=== PATIENT | female | born 1980 | race Caucasian/White ===

== ENCOUNTER 2017-02-14 12:40 | Emergency (ER) | payer OTHER ==
[~2017-02-14] VITALS: Ht 162.6 cm; Wt 99.0 kg
[~2017-02-14 12:40] MED LIST: PREN1TAB49
[2017-02-14 12:53] VITALS: Ht 162.6 cm; Wt 99.0 kg
--- NOTE | 2017-02-14 14:13 | ERD ---
ER Documentation Chief Complaint Date/Time DATE: 02/14/17 TIME: 14:06 Chief Complaint rectal pain/swelling x 3 days HPI 37-year-old female who is approximately 36 weeks presents the emergency department for complaints of pain and swelling near her rectum. She states the pain is intermittent and currently rates it as a 5 out of 10 dull pain worse with defecation. Patient states she has not attempted to treat her symptoms as far she is safe to take during . Patient does note similar symptoms with her 2 prior pregnancies. She denies bloody stool, hematochezia, coffee-ground emesis, abdominal pain, nausea, vomiting, diarrhea, fever, chills, cramping or vaginal bleeding. ROS All systems reviewed and are negative except as per history of present illness. Medications Home Meds Active Scripts Acetaminophen* (Tylenol*) 325 Mg Tablet, 2 TAB PO Q6 Y for PAIN AND OR ELEVATED TEMP, #20 TAB Prov:VICENTA GOODE PA-C 02/14/17 Docusate Sodium* (Colace*) 100 Mg Capsule, 100 MG PO TID, #30 CAP Prov:VICENTA GOODE PA-C 02/14/17 Hydrocortisone Acetate (Anusol-Hc) 25 Mg Supp.rect, 1 SUPP [place] BID Y for HEMORROID PAIN/ITCHING, #20 SUPP.RECT Prov:VICENTA GOODE PA-C 02/14/17 Reported Medications Vits W-Ca,Fe,Fa(<1MG) () 1 Tab Tablet 02/08/11 Allergies Allergies: Coded Allergies: No Known Drug Allergies (Verified Allergy, Unknown, 02/14/17) Physical Exam Vitals Vital Signs Date Time Temp Pulse Resp B/P Pulse Ox O2 Delivery O2 Flow Rate FiO2 02/14/17 12:53 97.9 86 16 116/58 99 Physical Exam Const: Well-developed, well-nourished, no acute distress Neck: Full range of motion..~ No meningismus. Resp: Clear to auscultation bilaterally Cardio: Regular rate and rhythm, no murmurs Abd: Soft, non tender, non distended. Normal bowel sounds RECTAL: Two, 1 cm soft external hemorrhoids. 1 hardened possibly thrombosed external hemorrhoid. Moderate tenderness to palpation. No active bleeding. No evidence of other perianal cysts swelling or fluctuance. Back: No midline or flank tenderness Ext: No cyanosis, or edema Neur: Awake and alert Psych: Normal Mood and Affect Procedures/MDM This is an otherwise healthy 37-year-old female who is approximately 36 weeks who presents with complaints of rectal pain and swelling 3 days. Patient denies any bleeding, hematochezia, coffee-ground emesis, dizziness, fever, chills, abdominal pain, or fever. Patient notes similar symptoms with prior pregnancies. She states she was unaware of safe medications to take to improve her symptoms. Vital signs reviewed. Patient afebrile, non-tachycardic , normotensive and non-hypoxic upon arrival. Physical exam with evidence of multiple tender, nonbleeding external hemorrhoids. No evidence of other perianal swelling or fluctuance. History and physical consistent with hemorrhoid. At this time low suspicion for perianal or rectal abscess, urinary tract infection, labor, severe systemic illness or sepsis. Patient to begin conservative therapy with stool softener and Anusol suppository for symptomatic relief. Both medications have been shown to be safe during . Patient follow-up with primary care physician if symptoms do not improve. Resources provided for GI specialist if symptoms continue or worsen. Based on patient's history of present illness and physical examination the decision was made to discharge. There is no evidence of life threatening injuries or illnesses at this time. Patient reports feeling better and safe for discharge with outpatient follow up with PMD in 1-2 days. Patient given return precautions. Departure Diagnosis: Primary Impression: Hemorrhoid Hemorrhoid type: unspecified Qualified Code: K64.9 - Hemorrhoids, unspecified hemorrhoid type Additional Impression: Rectal pain VICENTA GOODE PA-C Feb 14, 2017 14:13
[2017-02-14] MEDS ORDERED: ACET325T33 PO (14:23)
[2017-02-14] MEDS ORDERED: HYDR25SU23 PR (14:23)
[2017-02-14] MEDS ORDERED: DOCU-144 PO (14:23)
== END 2017-02-14 14:59 | disposition home or self-care (01) ==
LOC: FTE 12:40
DX: K64.4 Residual hemorrhoidal skin tags (principal)
CPT/HCPCS: 99284

== ENCOUNTER 2017-03-07 15:21 | Inpatient (IN) | payer OTHER ==
[~2017-03-07] VITALS: Ht 167.6 cm; Wt 100.5 kg
[~2017-03-07 15:21] MED LIST changes: +ACET325T33 PO; +DOCU-144 PO; +HYDR25SU23 PR
--- NOTE | 2017-03-07 15:55 | RADRPT ---
PROCEDURE: US OB biophysical profile. CLINICAL INDICATION: decreased movements TECHNIQUE: Multiple sonographic images of the pelvis were obtained. The images were reviewed on a PACS workstation. COMPARISON: No prior studies are available for comparison. FINDINGS: There is a single viable intrauterine gestation. Cardiac activity is present with 150 beats per min bobby. There is a vertex presentation. The placenta is posterior fundal. There is no evidence for an abruption or placenta previa. There is a normal amount of amniotic fluid with an DEMETRIO = 16.2 cm. Biophysical profile: movement 2/2 tone 2/2. breathing 2/2 DEMETRIO 2/2 Total 02/27 RPTAT: AA . IMPRESSION: Normal biophysical profile. . .Marcio Darling MD, Date Time Electronically viewed and signed by .Marcio Darling MD, MD on 03/07/2017 15:55 .S/
--- NOTE | 2017-03-07 15:55 | RADRPT ---
PROCEDURE: US OB. CLINICAL INDICATION: Size and dates , large for dates TECHNIQUE: Multiple sonographic images of the pelvis and gravid uterus were obtained. The images were reviewed on a PACS workstation. COMPARISON: No prior studies are available for comparison. FINDINGS: There is a single viable intrauterine gestation. Cardiac activity is present with 148 beats per min [place]. There is a vertex presentation. The placenta is posterior fundal. There is no evidence for an abruption or placenta previa. There is a normal amount of amniotic fluid with an DEMETRIO = 16.2 cm. Measurements were made in order to determine age. The results are as follows: BPD =9.4 cm HC =33.5 cm AC =38.5 cm FL =7.4 cm Estimated gestational age of approximately 38 weeks and 1 day based on ultrasound measurements. Clinical age: 39 weeks and 2 days. The estimated date of delivery is 03/20/17, based on ultrasound measurements. The EFW = 4123 g, 92.4%, based on LMP age. RPTAT: AA IMPRESSION: Single viable intrauterine gestation of approximately 38 weeks and 1 day based on ultrasound measur ements. .Marcio Darling MD, MD Date Time Electronically viewed and signed by .Marcio Darling MD, MD on 03/07/2017 15:54 .S/
[2017-03-07 16:04] VITALS: BP 125/68; PULSE 75; RESP 18
[2017-03-07] MEDS ORDERED: LACTATED RINGER'S 1,000 ML IV SCH ×2 (19:49)
[2017-03-07] MEDS ORDERED: LACTATED RINGER'S 1,000 ML IV PRN (20:00)
[2017-03-07] MEDS ORDERED: BUTORPHANOL 2 MG INJ IV PRN (20:00)
[2017-03-07] MEDS ORDERED: OXYTOCIN 30 UNITS/LR 500 ML IV SCH ×2 (20:00)
[2017-03-07] MEDS ORDERED: MISOPROSTOL 200 MCG TAB PR PRN (20:00)
[2017-03-07] MEDS ORDERED: LIDOCAINE 1% (MPF) 30 ML INJ INJ PRN (20:00)
[2017-03-07] MEDS ORDERED: CARBOPROST 250 MCG INJ IM PRN (20:00)
[2017-03-07] MEDS ORDERED: METHYLERGONOVINE 0.2 MG INJ IM PRN (20:00)
[2017-03-07] MEDS ORDERED: IBUPROFEN 600 MG TAB PO PRN (20:00)
[2017-03-07] MEDS ORDERED: OXYTOCIN 30 UNITS/LR 500 ML IV PRN (20:00)
[2017-03-07] MEDS ORDERED: DINOPROSTONE 10 MG VAG SUPP VAG ONE (20:00)
[2017-03-07 21:40] LABS: BASOPHILS % 0.4 % (0.0-2.0); EOSINOPHILS % 0.5 % (0.0-7.0); HEMATOCRIT 36.3 % (37.0-47.0); HEMOGLOBIN 11.3 g/dl (12.0-16.0); LYMPHOCYTES # 1.4 10^3/ul (0.8-2.9); LYMPHOCYTES % 17.3 % (15.0-51.0); MEAN CORPUSCULAR HEMOGLOBIN 24.1 pg (29.0-33.0); MEAN CORPUSCULAR HGB CONC 31.1 g/dl (32.0-37.0); MEAN CORPUSCULAR VOLUME 77.6 fl (82.0-101.0); MEAN PLATELET VOLUME 11.4 fl (7.4-10.4); MONOCYTE # 0.8 10^3/ul (0.3-0.9); MONOCYTES % 9.3 % (0.0-11.0); NEUTROPHILS % 71.4 % (39.0-77.0); PLATELET COUNT 164 10^3/UL (140-415); RED BLOOD COUNT 4.68 10^6/ul (4.20-5.40); RED CELL DISTRIBUTION WIDTH 16.5 % (11.5-14.5); WHITE BLOOD COUNT 8.3 10^3/ul (4.8-10.8)
[2017-03-07 22:00] LABS: INR 0.93; PROTIME 12.5 Sec (12.2-14.2)
--- NOTE | 2017-03-07 22:37 | HP ---
Date/Time of Note Date/Time of Note DATE: 03/07/17 TIME: 22:31 OB - History Hx of Present Free Text/Dictation March 07, 2017 Chief Complaint: Suspected macrosomia : 4 Para: 3 Spontaneous : 0 Care: Good Care Other Concerns: 37-year-old with IUP at 39 weeks and 2 days with care at [facility] was sent from the clinic for induction of labor due to suspected macrosomia. She was noted to have 92% estimated weight in ultrasound. Had a history of macrosomia into prior . Had a baby above 9 pound and 3 oz baby in prior . cervix was closed and long and high. GBS negative History of chlamydia in current , s/p treatment , SERENA negative Past Family/Social History * Past Medical, Surgical, Family and Obstetric Histories reviewed from chart. Blood Type: O+ Rubella: immune RPR/VDRL: Negative GBS Status: Negative HBsAG: Negative OB Admission Exam Vital Signs Vital Signs Vital Signs Date Time Temp Pulse Resp B/P Pulse Ox O2 Delivery O2 Flow Rate FiO2 03/07/17 16:04 98.0 75 18 125/68 98 Room Air Physical Exam HEENT: WNL Heart: Rhythm Normal Lungs: Clear Abdomen: WNL Reflexes: Normal Cervical Dilatation: None Effacement: 0% Station: -3 Heart Rate: 130's Accelerations: Accelerations Present Decelerations: No Decelerations Varibility: Moderate Contractions on Admission: 6-10 Minutes Apart Intensity: Moderate Last 72 hours Lab Results CBC & BMP 03/07/17 21:00 OB Assessment/Plan Other Assessment: IUP at 39 weeks and 2 days Suspected macrosomia History of macrosomia in prior estimated weight in current 92 percentile GBS Cervix unfavorable Discussed with the patient regarding induction. cervical ripening with Cervidil discussed Risk and benefit of induction including risk for section discussed. Patient verbalized understanding We will admit to labor and delivery Start Cervidil for 12 hours Reevaluate the cervix after 12 hours Consider Pitocin if the cervix is favorable Anticipate Shoulder precaution at the time of delivery RADHA PÉREZ MD Mar 07, 2017 22:37
[2017-03-08] MEDS ORDERED: ONDANSETRON 4 MG INJ ONE (02:09)
[2017-03-08] MEDS ORDERED: CITRIC ACID/NA CITRATE 30 ML CUP ONE (02:09)
[2017-03-08] MEDS ORDERED: LACTATED RINGER'S 1,000 ML IV ONE (02:11)
[2017-03-08] MEDS ORDERED: FENTAnyl 2MCG/ML-ROPIV 0.2% 100 ML ONE (02:17)
[2017-03-08] MEDS ORDERED: NALBUPHINE HCL (10 MG/1 ML) INJ IV PRN (02:30)
[2017-03-08] MEDS ORDERED: FENTAnyl 2MCG/ML-ROPIV 0.2% 100 ML BAG EPI SCH (02:30)
[2017-03-08] MEDS ORDERED: NALOXONE (0.4 MG/ML) INJ IV PRN (02:30)
[2017-03-08] MEDS ORDERED: morphine 2 MG INJ IV PRN (02:30)
[2017-03-08] MEDS ORDERED: morphine 4 MG/ML VIAL IV PRN (02:30)
[2017-03-08] MEDS ORDERED: DIPHENHYDRAMINE 50 MG INJ IV PRN (02:30)
[2017-03-08] MEDS ORDERED: CITRIC ACID/NA CITRATE 30 ML CUP PO ONE (02:30)
[2017-03-08] MEDS ORDERED: ONDANSETRON 4 MG INJ IV ONE (02:30)
[2017-03-08] MEDS ORDERED: KETOROLAC 30 MG INJ IV PRN (02:30)
[2017-03-08] MEDS ORDERED: ONDANSETRON 4 MG INJ IV PRN ×2 (02:30→05:00)
[2017-03-08] MEDS ORDERED: TRIMETHOBENZAMIDE 100 MG/ML VIAL IM PRN (02:30)
[2017-03-08] MEDS ORDERED: LACTATED RINGER'S 1,000 ML IV* SCH (04:48)
--- NOTE | 2017-03-08 04:48 | LDN ---
Date/Time of Note Date/Time of Note DATE: 03/08/17 TIME: 04:46 Delivery Summary March 08, 2017 Weeks of Gestation 39 weeks and 2 days Placenta Delivered: Spontaneously Meconium: Particulate Episiotomy: No Perineal laceration: 2 Laceration repair: Second-degree perineal laceration that was repaired using 2-0 chromic Anesthesia type: Epidural Sponge & Needle done & correct: Yes All needle counts correct: Yes Any foreign bodies felt in the: No Problems: Infant Delivery Information Sex Infant Sex: male Apgars 1 Minute: 8 5 Minute: 9 Suctioning Nose & mouth suctioned at marcia: Yes Delee suction performed: Yes Umbilical Cord Umbilical cord with: 3 Vessels Cord presentations: no nuchal cord Cord Blood was obtained: Yes Mother & Baby Disposition Disposition placenta delivered intact. cord blood cord obtained. RADHA PÉREZ MD Mar 08, 2017 04:48
[2017-03-08] MEDS ORDERED: CARBOPROST 250 MCG INJ IM PRN (05:00)
[2017-03-08] MEDS ORDERED: WITCH HAZEL/GLYCERIN PAD PR PRN (05:00)
[2017-03-08] MEDS ORDERED: HYDROCODONE/APAP (5/325) TAB PO PRN (05:00)
[2017-03-08] MEDS ORDERED: DIPHENHYDRAMINE 25 MG CAP PO PRN (05:00)
[2017-03-08] MEDS ORDERED: LANOLIN 7 GM TUBE TOP PRN (05:00)
[2017-03-08] MEDS ORDERED: OXYTOCIN 30 UNITS/LR 500 ML IVPB ONE (05:00)
[2017-03-08] MEDS ORDERED: ZOLPIDEM 5 MG TAB PO PRN (05:00)
[2017-03-08] MEDS ORDERED: METHYLERGONOVINE 0.2 MG INJ IM PRN (05:00)
[2017-03-08] MEDS ORDERED: MISOPROSTOL 200 MCG TAB PR PRN (05:00)
[2017-03-08] MEDS ORDERED: OXYTOCIN 30 UNITS/LR 500 ML IV PRN (05:00)
[2017-03-08] MEDS ORDERED: ACETAMINOPHEN 325 MG TAB PO PRN (05:00)
[2017-03-08] MEDS: IBUPROFEN 600 MG TAB PO SCH ×4 (05:12→18:32)
[2017-03-08] MEDS: OXYTOCIN 30 UNITS/LR 500 ML IV SCH ×2 (05:15→10:32)
[2017-03-08 06:45] VITALS: BP 115/70; PULSE 66; RESP 18
[2017-03-08 08:14] VITALS: BP 100/59; PULSE 63; RESP 20
[2017-03-08] MEDS: SENNA/DOCUSATE NA (8.6MG/50MG) TAB PO SCH (10:31)
[2017-03-08 12:30] VITALS: BP 102/60; PULSE 90; RESP 18
[2017-03-08 16:18] VITALS: BP 118/57; PULSE 66; RESP 20
[2017-03-08 20:45] VITALS: BP 113/85; PULSE 87; RESP 19
[2017-03-09] MEDS: SENNA/DOCUSATE NA (8.6MG/50MG) TAB PO SCH ×2 (00:06→10:04)
[2017-03-09] MEDS: IBUPROFEN 600 MG TAB PO SCH ×4 (00:06→11:44)
[2017-03-09] MEDS: OXYTOCIN 30 UNITS/LR 500 ML IV SCH (00:55)
[2017-03-09 04:45] VITALS: BP 123/70; PULSE 77; RESP 19
[2017-03-09 08:30] VITALS: BP 112/59; PULSE 76; RESP 16
--- NOTE | 2017-03-09 09:58 | PD.PPDC ---
REGISTERED NURSE FLOAT POOL Discharge Instruction Condition Patient Condition: Good Diet Diet: Resume Regular Diet Activity/Restrictions Activity: Normal Activity May Shower Restrictions: No Exercising No Lifting No Driving No Sexual Activity Nothing in the Vagina No [place] No Tampons, douche Follow-up Follow-up with Physician: 2, Week/Weeks Provider Information: day 1 patient would like to be discharged today instructions given recommended continue taking vitamin, make an appointment with the clinic seen in 2 weeks Return to clinic for MANAGER FLOOR Instructions: Fever greater than 101 Chills Worsening abdominal pain Excessive Vaginal Bleeding More than 2 pads per hour Unable to tolerate diet OB Instructions: Breast Tenderness Depression Blurried Vision Headache GRACIELA CAMACHO MD Mar 09, 2017 09:58
--- NOTE | 2017-03-09 09:59 | PD.PPDC ---
BLEACH LIQUOR MAKER Discharge Instruction Condition Patient Condition: Good Diet Diet: Resume Regular Diet Activity/Restrictions Activity: Normal Activity May Shower Restrictions: No Exercising No Lifting No Driving No Sexual Activity Nothing in the Vagina No [place] No Tampons, douche Follow-up Follow-up with Physician: 2, Week/Weeks Return to clinic for BLANKET MAKER Instructions: Fever greater than 101 Chills Worsening abdominal pain Excessive Vaginal Bleeding More than 2 pads per hour Unable to tolerate diet OB Instructions: Breast Tenderness Depression Blurried Vision Headache GRACIELA CAMACHO MD Mar 09, 2017 09:59
--- NOTE | 2017-03-09 10:02 | DS ---
Date/Time of Note Date/Time of Note DATE: 03/09/17 TIME: 10:00 Discharge Summary Admission/Discharge Info Admit Date/Time Mar 07, 2017 at 19:30 Discharge Date/Time March 09, 2017 Discharge Diagnosis Post normal vaginal delivery day 1 Patient Condition: Good Procedures Normal vaginal delivery Hx of Present Illness Term admitted for delivery Hospital Course Satisfactory uneventful Home Meds Reported Medications Vits W-Ca,Fe,Fa(<1MG) () 1 Tab Tablet 02/08/11 Discontinued Scripts Acetaminophen* (Tylenol*) 325 Mg Tablet, 2 TAB PO Q6 Y for PAIN AND OR ELEVATED TEMP, #20 TAB Prov:VICENTA GOODE PA-C 02/14/17 Docusate Sodium* (Colace*) 100 Mg Capsule, 100 MG PO TID, #30 CAP Prov:VICENTA GOODE PA-C 02/14/17 Hydrocortisone Acetate (Anusol-Hc) 25 Mg Supp.rect, 1 SUPP [place] BID Y for HEMORROID PAIN/ITCHING, #20 SUPP.RECT Prov:VICENTA GOODE PA-C 02/14/17 Follow-up Plan instruction given recommended to make appointment in 2 weeks to be seen at the clinic Primary Care Provider Care Physician No Primary Time spent on discharge: < 30 minutes GRACIELA CAMACHO MD Mar 09, 2017 10:02
[2017-03-09 10:48] LABS: BASOPHILS % 0.2 % (0.0-2.0); EOSINOPHILS # 0.1 10^3/ul (0.0-0.5); EOSINOPHILS % 0.5 % (0.0-7.0); HEMATOCRIT 32.5 % (37.0-47.0); HEMOGLOBIN 9.8 g/dl (12.0-16.0); LYMPHOCYTES # 1.7 10^3/ul (0.8-2.9); LYMPHOCYTES % 13.6 % (15.0-51.0); MEAN CORPUSCULAR HEMOGLOBIN 23.8 pg (29.0-33.0); MEAN CORPUSCULAR HGB CONC 30.2 g/dl (32.0-37.0); MEAN CORPUSCULAR VOLUME 78.9 fl (82.0-101.0); MEAN PLATELET VOLUME 11.8 fl (7.4-10.4); MONOCYTE # 0.9 10^3/ul (0.3-0.9); MONOCYTES % 7.5 % (0.0-11.0); NEUTROPHILS % 77.5 % (39.0-77.0); PLATELET COUNT 185 10^3/UL (140-415); RED BLOOD COUNT 4.12 10^6/ul (4.20-5.40); RED CELL DISTRIBUTION WIDTH 16.9 % (11.5-14.5); WHITE BLOOD COUNT 12.2 10^3/ul (4.8-10.8)
[2017-03-10] MEDS ORDERED: VARICELLA VACCINE LIVE/PF 1,350 UNIT/0.5 ML ML SC* ONE (09:00)
[2017-03-10] MEDS ORDERED: DIPHTH/TET/ACEL PERTUSS (ADULT) 0.5 ML VIAL IM* ONE (09:00)
== END 2017-03-09 15:59 | disposition home or self-care (01) | DRG 775 ==
LOC: OBT 15:21 → L-D 15:22 → OBT 19:30 → L-D 19:30 → PP1 03-08 06:25
PROVIDERS: ADMIT Obstetrics & Gynecology; ATTEND Obstetrics & Gynecology
PROC: 10E0XZZ Delivery of Products of Conception, External Approach (ICD-10-PCS; principal; 2017-03-08)
PROC: 0KQM0ZZ Repair Perineum Muscle, Open Approach (ICD-10-PCS; 2017-03-08)
DX: O70.1 Second degree perineal laceration during delivery (principal); Z37.0 Single live birth; E66.01 Morbid (severe) obesity due to excess calories; O99.214 Obesity complicating childbirth; Z68.35 Body mass index [BMI] 35.0-35.9, adult; Z3A.39 39 weeks gestation of pregnancy
CPT/HCPCS: 36415; 62319; 76815; 76818; 85025; 85610; 85730; 86592; 86900; 86901; 87340; 96360; 99464; G0463; J0595; J2405; J2590; J3010; J7120